=== PATIENT | female | born 1960 | race Caucasian/White ===

== ENCOUNTER 2018-08-03 15:22 | Emergency (ER) | payer OTHER ==
[2018-08-03] MEDS ORDERED: ALBUTEROL 2.5 MG/3 ML NEB SOL ONE (16:14)
[2018-08-03] MEDS ORDERED: IPRATROPIUM BROM 0.5MG/2.5ML ONE (16:14)
[2018-08-03] MEDS ORDERED: predniSONE 20 MG TAB ONE (16:14)
--- NOTE | 2018-08-03 17:25 | RAD REPORT ---
EXAM DESCRIPTION: RAD - Chest Pa And Lat (2 Views) - 08/03/2018 5:12 pm CLINICAL HISTORY: Cough;SOB Chest pain. COMPARISON: CHEST SINGLE VIEW dated 03/16/2015 TECHNIQUE: PA and lateral views of the chest were obtained. FINDINGS: The lungs are hyperexpanded compatible with COPD. The heart is upper limit of normal in si ze. No fracture or aggressive bony process. IMPRESSION: COPD without acute process identified.
--- NOTE | 2018-08-03 17:28 | ER ---
Nurse's Notes [facility] Name: Yesenia Salgado Age: 58 yrs Sex: Female : 1960 Arrival Date: 08/03/2018 Time: 15:25 Bed 5 Private MD: Diagnosis: Chronic obstructive pulmonary disease, unspecified Presentation: 08/03 15:40 Presenting complaint: Patient states: the other day, i had a very bad sinus infection, hj and now i have this chest congestion; denies fever and chills;. Transition of care: patient was not received from another setting of care. Onset of symptoms was August 03, 2018. Risk Assessment: Do you want to hurt yourself or someone else? Patient reports no desire to harm self or others. Initial Sepsis Screen: Does the patient meet any 2 criteria? No. Patient's initial sepsis screen is negative. Does the patient have a suspected source of infection? No. Patient's initial sepsis screen is negative. Care prior to arrival: None. 15:40 Method Of Arrival: Ambulatory 15:40 Acuity: BEAN 3 hj Triage Assessment: 15:41 General: Appears in no apparent distress. uncomfortable, Behavior is calm, cooperative, hj appropriate for age. Respiratory: Reports shortness of breath Onset: The symptoms/episode began/occurred yesterday, the patient has mild shortness of breath. 15:44 Pain: Denies pain. hj Historical: - Allergies: 15:42 No Known Allergies; hj - Home Meds: 15:42 Lipitor Oral [Active]; Zoloft Oral [Active]; hj - PMHx: 15:42 Hyperlipidemia; Depression; hj - PSHx: 15:42 Hysterectomy; Back Sx; R hand skin graft; hj - Immunization history:: Adult Immunizations up to date. - Social history:: Smoking status: Patient uses tobacco products, Patient/guardian denies using alcohol. - Ebola Screening: : Patient negative for fever greater than or equal to 101.5 degrees Fahrenheit, and additional compatible Ebola Virus Disease symptoms Patient denies exposure to infectious person Patient denies travel to an Ebola-affected area in the 21 days before illness onset. Screenin:41 Abuse screen: Denies threats or abuse. Denies injuries from another. Nutritional hj screening: No deficits noted. Tuberculosis screening: No symptoms or risk factors identified. Fall Risk None identified. Assessment: 15:41 Cardiovascular: Rhythm is. Respiratory: Airway is patent Respiratory effort is even, hj unlabored, Respiratory pattern is regular, symmetrical, 17:55 Reassessment: PT D/C HOME AMBULATORY WITH FAMILY, DX WITH COPD. bp Vital Signs: 15:43 BP 127 / 88; Pulse 81; Resp 18; Temp 98.9(O); Pulse Ox 98% on R/A; Weight 61.23 kg; hj Height 5 ft. 3 in. (160.02 cm); 17:30 BP 129 / 89; Pulse 83; Resp 14; Pulse Ox 97% ; bp 15:43 Body Mass Index 23.91 (61.23 kg, 160.02 cm) hj ED Course: 15:25 Patient arrived in ED. rg4 15:41 Triage completed. hj 15:42 Arm band placed on right wrist. hj 15:43 Patient has correct armband on for positive identification. Placed in gown. Bed in low hj position. Call light in reach. Side rails up X 1. 15:47 Herbert Sanders NP is PHCP. pm1 15:47 Javier Pittman MD is Attending Physician. pm1 15:54 Cristóbal Preston, RICARDO is Primary Nurse. bp 16:19 Radiology exam delayed due to patient receiving breathing treatment at this time. sw 17:05 Patient moved to radiology via wheelchair. mh1 17:09 X-ray completed. Patient tolerated procedure well. Patient moved back from radiology. mh1 17:10 Chest Pa And Lat (2 Views) XRAY In Process Unspecified. EDMS 17:55 No provider procedures requiring assistance completed. Patient did not have IV access bp during this emergency room visit. Administered Medications: 16:10 Drug: Albuterol - atroVENT (3:1) (2.5 mg - 0.5 mg) 3 ml Route: Nebulizer; bp 17:34 Follow up: Response: No adverse reaction; Marked relief of symptoms bp 16:10 Drug: predniSONE 60 mg Route: PO; bp 17:34 Follow up: Response: No adverse reaction; Marked relief of symptoms bp 17:40 Drug: Rocephin (cefTRIAXone) 1 grams Route: IM; Site: right gluteus; bp 17:50 Follow up: Response: No adverse reaction bp Outcome: 17:27 Discharge ordered by . pm1 17:56 Discharged to home ambulatory, with family. bp 17:56 Condition: stable 17:56 Discharge instructions given to patient, Instructed on discharge instructions, follow up and referral plans. medication usage, benefits of quitting smoking, Demonstrated understanding of instructions, follow-up care, medications, Prescriptions given X 4. 17:57 Patient left the ED. bp Signatures: Dispatcher [employer] EDMS PacoSunshine mh1 Cherrie Sibley Henry, RN RN Herbert Sanders NP SENIOR HARDWARE DESIGN ENGINEER pm1 Mildred Zambrano rg4 Cristóbal Preston RN RN bp Corrections: (The following items were deleted from the chart) 15:45 15:43 Pulse 81bpm; Resp 18bpm; Pulse Ox 98% RA; Temp 98.9F Oral; 61.23 kg; Height 5 ft. hj 3 in.; BMI: 23.9; hj
--- NOTE | 2018-08-03 17:28 | EDPHYS ---
Physician Documentation [facility] Name: Yesenia Salgado Age: 58 yrs Sex: Female : 1960 Arrival Date: 08/03/2018 Time: 15:25 Bed 5 Private MD: ED Physician Javier Pittman HPI: 08/03 16:00 This 58 yrs old Female presents to ER via Ambulatory with complaints of pm1 Breathing Difficulty, Congestion. 16:00 The patient or guardian reports cough, difficulty breathing, sinus congestion. Onset: pm1 The symptoms/episode began/occurred yesterday. Modifying factors: The symptoms are alleviated by breathing treatment at PCP office. Patient does not have an inhaler. Associated signs and symptoms: Pertinent positives: earache, Pertinent negatives: chest pain, diarrhea, fever, nausea, rhinorrhea, vomiting. Severity of symptoms: in the emergency department the symptoms have improved. The patient has been recently seen by a physician: the patient's primary care provider, earlier today, with similar presenting complaints, instructed to report to the ER for evaluation. Patient with onset of sinus congestion and pain yesterday. Today patient reports post nasal drainage, cough and difficulty breathing. Patient with 40+ years of smoking and currently 1 pack per day. Went to PCP office, given breathing treatment and instructed to report to the ER for evaluation. Breathing treatment, albuterol x 1 improved her symptoms. Historical: - Allergies: 15:42 No Known Allergies; hj - Home Meds: 15:42 Lipitor Oral [Active]; Zoloft Oral [Active]; hj - PMHx: 15:42 Hyperlipidemia; Depression; hj - PSHx: 15:42 Hysterectomy; Back Sx; R hand skin graft; hj - Immunization history:: Adult Immunizations up to date. - Social history:: Smoking status: Patient uses tobacco products, Patient/guardian denies using alcohol. - Ebola Screening: : Patient negative for fever greater than or equal to 101.5 degrees Fahrenheit, and additional compatible Ebola Virus Disease symptoms Patient denies exposure to infectious person Patient denies travel to an Ebola-affected area in the 21 days before illness onset. ROS: 16:00 Constitutional: Negative for fever, chills, and weight loss, Eyes: Negative for injury, pm1 pain, redness, and discharge. 16:00 Neck: Negative for injury, pain, and swelling, Cardiovascular: Negative for chest pain, palpitations, and edema. 16:00 Abdomen/GI: Negative for abdominal pain, nausea, vomiting, diarrhea, and constipation, Back: Negative for injury and pain, : Negative for injury, bleeding, discharge, and swelling, MS/Extremity: Negative for injury and deformity, Skin: Negative for injury, rash, and discoloration, Neuro: Negative for headache, weakness, numbness, tingling, and seizure. 16:00 ENT: Positive for ear pain, sinus congestion, sinus pain. 16:00 Respiratory: Positive for cough, with no reported sputum, shortness of breath. Exam: 16:00 Constitutional: This is a well developed, well nourished patient who is awake, alert, pm1 and in no acute distress. 16:00 Eyes: Pupils equal round and reactive to light, extra-ocular motions intact. Lids and lashes normal. Conjunctiva and sclera are non-icteric and not injected. Cornea within normal limits. Periorbital areas with no swelling, redness, or edema. ENT: Nares patent. No nasal discharge, no septal abnormalities noted. Tympanic membranes are normal and external auditory canals are clear. Oropharynx with no redness, swelling, or masses, exudates, or evidence of obstruction, uvula midline. Mucous membranes moist. Neck: Trachea midline, no thyromegaly or masses palpated, and no cervical lymphadenopathy. Supple, full range of motion without nuchal rigidity, or vertebral point tenderness. No Meningismus. Chest/axilla: Normal chest wall appearance and motion. Nontender with no deformity. No lesions are appreciated. Cardiovascular: Regular rate and rhythm with a normal S1 and S2. No gallops, murmurs, or rubs. Normal PMI, no JVD. No pulse deficits. 16:00 Abdomen/GI: Soft, non-tender, with normal bowel sounds. No distension or tympany. No guarding or rebound. No evidence of tenderness throughout. Back: No spinal tenderness. No costovertebral tenderness. Full range of motion. Skin: Warm, dry with normal turgor. Normal color with no rashes, no lesions, and no evidence of cellulitis. MS/ Extremity: Pulses equal, no cyanosis. Neurovascular intact. Full, normal range of motion. 16:00 Head/face: Sinus tenderness, that is mild, is located over the right maxillary sinus and left maxillary sinus. 16:00 Respiratory: the patient does not display signs of respiratory distress, Respirations: normal, Breath sounds: wheezin:00 Neuro: Orientation: is normal, Motor: is normal, moves all fours, Gait: is steady, at a normal pace, without difficulty. Vital Signs: 15:43 BP 127 / 88; Pulse 81; Resp 18; Temp 98.9(O); Pulse Ox 98% on R/A; Weight 61.23 kg; hj Height 5 ft. 3 in. (160.02 cm); 17:30 BP 129 / 89; Pulse 83; Resp 14; Pulse Ox 97% ; bp 15:43 Body Mass Index 23.91 (61.23 kg, 160.02 cm) hj MDM: 15:48 Patient medically screened. pm1 17:26 Data reviewed: vital signs. Data interpreted: Pulse oximetry: on room air is 98 %. pm1 Interpretation: normal. 17:26 Counseling: I had a detailed discussion with the patient and/or guardian regarding: the pm1 historical points, exam findings, and any diagnostic results supporting the discharge/admit diagnosis, lab results, radiology results, the need for outpatient follow up, to return to the emergency department if symptoms worsen or persist or if there are any questions or concerns that arise at home. 03 15:55 Order name: Flu; Complete Time: 16:56 pm1 08/03 15:55 Order name: Strep; Complete Time: 16:56 pm1 08/03 15:55 Order name: Chest Pa And Lat (2 Views) XRAY; Complete Time: 17:26 pm1 08/03 16:54 Order name: Throat Culture EDMS Administered Medications: 16:10 Drug: Albuterol - atroVENT (3:1) (2.5 mg - 0.5 mg) 3 ml Route: Nebulizer; bp 17:34 Follow up: Response: No adverse reaction; Marked relief of symptoms bp 16:10 Drug: predniSONE 60 mg Route: PO; bp 17:34 Follow up: Response: No adverse reaction; Marked relief of symptoms bp 17:40 Drug: Rocephin (cefTRIAXone) 1 grams Route: IM; Site: right gluteus; bp 17:50 Follow up: Response: No adverse reaction bp Disposition: 08/03/18 17:27 Discharged to Home. Impression: Chronic obstructive pulmonary disease, unspecified. - Condition is Stable. - Discharge Instructions: Chronic Obstructive Pulmonary Disease. - Prescriptions for Prednisone 20 mg Oral Tablet - take 3 tablet by ORAL route once daily for 5 days; 15 tablet. Zithromax Z- Usman 250 mg Oral Tablet - take 1 tablet by ORAL route as directed for 5 days Day 1 - take two (2) tablets one time. Day 2, 3, 4 , 5 take one (1) tablet once daily.; 6 tablet. Albuterol Sulfate 90 mcg/actuation - inhale 1-2 puff by INHALATION route every 4-6 hours; 1 Inhaler. Guaifenesin AC 10- 100 mg/5 mL Oral Liquid - take 10 milliliter by ORAL route every 4 hours As needed; 240 milliliter. - Medication Reconciliation Form, Thank You Letter, Prescription Opioid Use form. - Follow up: Emergency Department; When: As needed; Reason: Worsening of condition. Follow up: Private Physician; When: 2 - 3 days; Reason: Recheck today's complaints, Continuance of care, Re-evaluation by your physician. - Problem is new. - Symptoms have improved. Signatures: Dispatcher [employer] EDMS Raoul Wilburn RN RN hj Herbert Sanders NP PLATE SENSITIZER pm1 Cristóbal Preston RN RN bp Corrections: (The following items were deleted from the chart) 17:57 17:27 08/03/2018 17:27 Discharged to Home. Impression: Chronic obstructive pulmonary bp disease, unspecified. Condition is Stable. Forms are Medication Reconciliation Form, Thank You Letter, Antibiotic Education, Prescription Opioid Use. Follow up: Emergency Department; When: As needed; Reason: Worsening of condition. Follow up: Private Physician; When: 2 - 3 days; Reason: Recheck today's complaints, Continuance of care, Re-evaluation by your physician. Problem is new. Symptoms have improved. pm1
[2018-08-03] MEDS ORDERED: CEFTRIAXONE 1000 MG/VIAL ONE (17:48)
[2018-08-03] MEDS ORDERED: LIDOCAINE 2% MPF 5 ML VIAL ONE (17:48)
[2018-08-03 18:11] VITALS: TEMP 98.9
[2018-08-03 18:12] VITALS: BP 129/89; O2SAT 97
== END 2018-08-03 17:57 | disposition home or self-care (01) ==
LOC: ER 15:22
DX: J44.9 Chronic obstructive pulmonary disease, unspecified (principal); E78.5 Hyperlipidemia, unspecified; F32.9 Major depressive disorder, single episode, unspecified; F17.210 Nicotine dependence, cigarettes, uncomplicated
CPT/HCPCS: 71046; 87070; 87081; 87804; 94640; 96372; 99284; J7512

== ENCOUNTER 2018-08-20 11:58 | Emergency (ER) | payer OTHER ==
[2018-08-20] MEDS ORDERED: LEVALBUTEROL 1.25 MG/3 ML NEB ONE (13:02)
[2018-08-20] MEDS ORDERED: METHYLPREDNISOLONE 125 MG INJ ONE (13:02)
[2018-08-20] MEDS ORDERED: CEFTRIAXONE/SWI 1gm 1 GM/10 ML SYR ONE (13:02)
[2018-08-20] MEDS ORDERED: IPRATROPIUM BROM 0.5MG/2.5ML ONE (13:02)
[2018-08-20] MEDS ORDERED: AZITHROMYCIN 250 MG TAB ONE (13:02)
[2018-08-20 13:14] LABS: Absolute Monocytes 0.5 K/uL (0.1-1.3); Absolute Neutrophil 0.9 K/uL (1.8-8.0); Basophils % 0.7 % (0-1.3); Eosinophils % 1.5 % (0-4.4); Lymphocytes % 41.1 % (15.3-44.8); Monocytes % 19.7 % (3.3-12.3)
--- NOTE | 2018-08-20 13:22 | RAD REPORT ---
EXAM DESCRIPTION: Erik Single View08/20/2018 1:16 pm CLINICAL HISTORY: Cough COMPARISON: August 03, 2018 FINDINGS: The lungs appear clear of acute infiltrate. The heart is normal size IMPRESSION: No acute abnormalities displayed
[2018-08-20 13:31] LABS: Protime INR 1.18
[2018-08-20 13:38] LABS: ALT/SGPT 33 U/L (12-78); AST/SGOT 26 U/L (15-37); Albumin 3.7 g/dL (3.4-5.0); Alkaline Phosphatase 125 U/L (45-117); BUN Blood Urea Nitrogen 9 mg/dL (7-18); Bicarbonate 27 mmol/L (21-32); Bilirubin Direct < 0.1 mg/dL (0-0.2); Bilirubin Total 0.2 mg/dL (0.2-1.0); CKMB Creatine Kinase MB 1.2 ng/mL (0.3-3.6); Creatine Phosphokinase 44 U/L (26-192); Glucose Level 110 mg/dL (74-106); Lipase 81 U/L (73-393); Magnesium 2.3 mg/dL (1.8-2.4); NT PRO-BNP 29 pg/mL (<125); Potassium 3.3 mmol/L (3.5-5.1); Protein, Total 7.9 g/dL (6.4-8.2); Sodium Level 138 mmol/L (136-145); Troponin (Emerg Dept Use Only) < 0.02 ng/mL (0.0-0.045)
[2018-08-20 13:40] LABS: Blood Morphology Comment NOT SEEN (NOT SEEN); Platelet Estimate ADEQ
--- NOTE | 2018-08-20 14:37 | EDPHYS ---
Physician Documentation [facility] Name: Yesenia Salgado Age: 58 yrs Sex: Female : 1960 Arrival Date: 08/20/2018 Time: 11:59 Bed 25 Private MD: ED Physician Rufus Nunn HPI: 08/20 12:46 This 58 yrs old Female presents to ER via Ambulatory with complaints of ma2 Shortness Of Breath. 12:46 The patient has shortness of breath with light activity. Onset: The symptoms/episode ma2 began/occurred gradually, 3 day(s) ago. Associated signs and symptoms: Pertinent negatives: productive cough, fever, loss of consciousness, nausea, visual changes. Severity of symptoms: At their worst the symptoms were moderate in the emergency department the symptoms are unchanged. The patient has experienced similar episodes in the past. Historical: - Allergies: 12:12 No Known Allergies; hb - Home Meds: 12:12 Lipitor Oral [Active]; Zoloft Oral [Active]; hb - PMHx: 12:12 Depression; Hyperlipidemia; hb - PSHx: 12:12 Hysterectomy; Back Sx; R hand skin graft; hb - Immunization history:: Adult Immunizations up to date. - Social history:: Smoking status: Patient uses tobacco products, smokes one-half pack cigarettes per day, Patient uses Patient/guardian denies using alcohol, street drugs, The patient lives with family. - Ebola Screening: : No symptoms or risks identified at this time. - Family history:: not pertinent. ROS: 12:46 Constitutional: Negative for fever, chills, and weight loss. ma2 12:46 Respiratory: Positive for shortness of breath, Negative for dyspnea on exertion, orthopnea, pleurisy. 12:46 All other systems are negative. Exam: 12:46 Constitutional: This is a well developed, well nourished patient who is awake, alert, ma2 and in no acute distress. 12:46 ENT: Nares patent. No nasal discharge, no septal abnormalities noted. Tympanic membranes are normal and external auditory canals are clear. Oropharynx with no redness, swelling, or masses, exudates, or evidence of obstruction, uvula midline. Mucous membranes moist. Chest/axilla: Normal chest wall appearance and motion. Nontender with no deformity. No lesions are appreciated. Cardiovascular: Regular rate and rhythm with a normal S1 and S2. No gallops, murmurs, or rubs. Normal PMI, no JVD. No pulse deficits. Abdomen/GI: Soft, non-tender, with normal bowel sounds. No distension or tympany. No guarding or rebound. No evidence of tenderness throughout. MS/ Extremity: Pulses equal, no cyanosis. Neurovascular intact. Full, normal range of motion. Neuro: Awake and alert, GCS 15, oriented to person, place, time, and situation. Cranial nerves II-XII grossly intact. Motor strength 5/5 in all extremities. Sensory grossly intact. Cerebellar exam normal. Normal gait. 12:46 Respiratory: the patient does not display signs of respiratory distress, Respirations: no acute changes, Breath sounds: rales, wheezing: Respiratory rate: 2 Vital Signs: 12:12 BP 131 / 93; Pulse 90; Resp 20; Temp 98.9; Pulse Ox 97% on R/A; Pain 0/10; hb 12:41 BP 130 / 93; Pulse 94; Resp 15; Pulse Ox 94% on R/A; aj1 13:45 BP 106 / 78; Pulse 79; Resp 19; Pulse Ox 94% on R/A; aj1 14:55 BP 116 / 78 LA; Pulse 80 RA; Resp 17; Pulse Ox 98% on R/A; aj1 MDM: 12:31 Patient medically screened. [facility] 12:46 Differential diagnosis: Anemia asthma, Bronchitis reactive airway disease. Antibiotic wa2 administration: The patient is discharged and will get outpatient antibiotics. 14:35 Data reviewed: vital signs, nurses notes. Counseling: I had a detailed discussion with ma2 the patient and/or guardian regarding: the historical points, exam findings, and any diagnostic results supporting the discharge/admit diagnosis, the presence of at least one elevated blood pressure reading (>120/80) during this emergency department visit, the need for outpatient follow up. Response to treatment: the patient's symptoms have resolved after treatment. 08/20 12:41 Order name: Blood Culture Adult (2) [facility] 08/20 12:41 Order name: BMP; Complete Time: 14:34 [facility] 08/20 12:41 Order name: CBC with Diff; Complete Time: 14:34 [facility] 08/20 12:41 Order name: Ckmb; Complete Time: 14:34 08/20 12:41 Order name: CPK; Complete Time: 14:34 08/20 12:41 Order name: Hepatic Function; Complete Time: 14:34 08/20 12:41 Order name: Lipase; Complete Time: 14:34 08/20 12:41 Order name: Magnesium; Complete Time: 14:34 08/20 12:41 Order name: NT PRO-BNP; Complete Time: 14:34 08/20 12:41 Order name: PT-INR; Complete Time: 14:34 08/20 12:41 Order name: Ptt, Activated; Complete Time: 14:34 2 08/20 12:41 Order name: Troponin (emerg Dept Use Only); Complete Time: 14:34 08/20 12:41 Order name: Influenza Screen (a \T\ B); Complete Time: 14:34 08/20 13:24 Order name: Manual Differential; Complete Time: 14:34 EDMS 08/20 12:41 Order name: XRAY CXR (1 view); Complete Time: 14:34 08/20 12:41 Order name: EKG; Complete Time: 12:42 08/20 12:41 Order name: Cardiac monitoring; Complete Time: 12:47 08/20 12:41 Order name: EKG - Nurse/Tech; Complete Time: 13:00 08/20 12:41 Order name: IV Saline Lock; Complete Time: 13:01 08/20 12:41 Order name: Labs collected and sent; Complete Time: 13:01 08/20 12:41 Order name: O2 Per Protocol; Complete Time: 12:47 08/20 12:41 Order name: O2 Sat Monitoring; Complete Time: 12:47 ma Administered Medications: 13:02 Drug: SOLU-Medrol 125 mg Route: IVP; Site: left antecubital; 13:02 Drug: AtroVENT Aerosol 0.5 mg {Note: Give one dose per Dr. Nunn.} Route: Inhalation; aj 13:02 Drug: Rocephin 1 grams Route: IV; Rate: calculated rate; Site: left antecubital; aj 13:02 Drug: AZITHromycin 500 mg Route: PO; aj1 13:03 Drug: Xopenex 1.25 mg Route: Inhalation; aj1 Disposition: 08/20/18 14:36 Discharged to Home. Impression: Acute bronchitis. - Condition is Stable. - Discharge Instructions: Acute Bronchitis, Adult. - Prescriptions for Zithromax Z- Usman 250 mg Oral Tablet - take 1 tablet by ORAL route as directed for 5 days Day 1 - take two (2) tablets one time. Day 2, 3, 4 , 5 take one (1) tablet once daily.; 6 tablet. Medrol (Usman) 4 mg Oral Tablets, Dose Pack - take 1 tablet by ORAL route as directed - follow package instructions; 1 packet. - Medication Reconciliation Form, Thank You Letter, Antibiotic Education, Prescription Opioid Use form. - Follow up: Private Physician; When: Tomorrow; Reason: Continuance of care. Signatures: Dispatcher [employer] Maria Del Rosario Alfaro RN RN aj1 Emilia Styles RN RN Rufus Nunn MD MD ma2 Corrections: (The following items were deleted from the chart) 14:57 14:36 08/20/2018 14:36 Discharged to Home. Impression: Acute bronchitis. Condition is aj1 Stable. Forms are Medication Reconciliation Form, Thank You Letter, Antibiotic Education, Prescription Opioid Use. Follow up: Private Physician; When: Tomorrow; Reason: Continuance of care. ma2
--- NOTE | 2018-08-20 14:37 | ER ---
Nurse's Notes [facility] Name: Yesenia Salgado Age: 58 yrs Sex: Female : 1960 Arrival Date: 08/20/2018 Time: 11:59 Bed 25 Private MD: Diagnosis: Acute bronchitis Presentation: 08/20 12:10 Presenting complaint: Cough, congestion,and SOB x 2 weeks, body aches x 3 days. Feels hb like SOB is getting worse. TMAX 102. Transition of care: patient was not received from another setting of care. Onset of symptoms was August 20, 2018. Risk Assessment: Do you want to hurt yourself or someone else? Patient reports no desire to harm self or others. Care prior to arrival: None. 12:10 Method Of Arrival: Ambulatory hb 12:10 Acuity: BEAN 3 hb 14:56 Initial Sepsis Screen: Does the patient meet any 2 criteria? No. Patient's initial aj1 sepsis screen is negative. Does the patient have a suspected source of infection? No. Patient's initial sepsis screen is negative. Triage Assessment: 14:56 General: Appears in no apparent distress. uncomfortable. Respiratory: Onset: The aj1 symptoms/episode began/occurred gradually, the patient has mild shortness of breath. Respiratory: Breath sounds with wheezes bilaterally. Respiratory: Airway is patent. Respiratory:. Historical: - Allergies: 12:12 No Known Allergies; hb - Home Meds: 12:12 Lipitor Oral [Active]; Zoloft Oral [Active]; hb - PMHx: 12:12 Depression; Hyperlipidemia; hb - PSHx: 12:12 Hysterectomy; Back Sx; R hand skin graft; hb - Immunization history:: Adult Immunizations up to date. - Social history:: Smoking status: Patient uses tobacco products, smokes one-half pack cigarettes per day, Patient uses Patient/guardian denies using alcohol, street drugs, The patient lives with family. - Ebola Screening: : No symptoms or risks identified at this time. - Family history:: not pertinent. Screenin:41 Abuse screen: Denies threats or abuse. Denies injuries from another. Nutritional aj1 screening: No deficits noted. Tuberculosis screening: No symptoms or risk factors identified. 14:57 Fall Risk None identified. aj1 Assessment: 12:41 General: Appears in no apparent distress. comfortable, Behavior is calm, cooperative, aj1 appropriate for age. Pain: Denies pain. Neuro: Level of Consciousness is awake, alert, obeys commands, Oriented to person, place, time, situation. Cardiovascular: Denies chest pain, Heart tones S1 S2 present Patient's skin is warm and dry. Rhythm is sinus rhythm. Respiratory: Reports shortness of breath Airway is patent Respiratory effort is even, unlabored, Respiratory pattern is regular, tachypnea Breath sounds with wheezes bilaterally. GI: No signs and/or symptoms were reported involving the gastrointestinal system. : No signs and/or symptoms were reported regarding the genitourinary system. EENT: No signs and/or symptoms were reported regarding the EENT system. Derm: No signs and/or symptoms reported regarding the dermatologic system. Skin is pink, warm \T\ dry. normal. Musculoskeletal: No signs and/or symptoms reported regarding the musculoskeletal system. Circulation, motion, and sensation intact. 13:45 Reassessment: Patient appears in no apparent distress at this time. Patient and/or aj1 family updated on plan of care and expected duration. Pain level reassessed. Patient is alert, oriented x 3, equal unlabored respirations, skin warm/dry/pink. Patient states that the breathing treatment has helped with her shortness of breath. Vital Signs: 12:12 BP 131 / 93; Pulse 90; Resp 20; Temp 98.9; Pulse Ox 97% on R/A; Pain 0/10; hb 12:41 BP 130 / 93; Pulse 94; Resp 15; Pulse Ox 94% on R/A; aj1 13:45 BP 106 / 78; Pulse 79; Resp 19; Pulse Ox 94% on R/A; aj1 14:55 BP 116 / 78 LA; Pulse 80 RA; Resp 17; Pulse Ox 98% on R/A; aj1 ED Course: 11:59 Patient arrived in ED. as 12:12 Triage completed. hb 12:13 Arm band placed on right wrist. hb 12:31 Rufus Nunn MD is Attending Physician. ma2 12:40 Maria Del Rosario Leblanc, RICARDO is Primary Nurse. aj1 12:40 First set of blood cultures drawn by me. jb1 12:41 Patient has correct armband on for positive identification. aj1 12:41 No provider procedures requiring assistance completed. aj1 12:53 EKG done, by site damage prevention technician. reviewed by Rufus Nunn MD. sm3 12:55 Second set of blood cultures drawn by me. jb1 13:00 Initial lab(s) drawn, by me, sent to lab. Inserted saline lock: 22 gauge in left jb1 antecubital area, using aseptic technique. Blood collected. 13:00 Flu and/or RSV swab sent to lab. jb1 13:00 Influenza Screen (a \T\ B) Sent. jb1 13:16 XRAY CXR (1 view) In Process Unspecified. EDMS 14:56 IV discontinued, bleeding controlled, No redness/swelling at site. Pressure dressing aj1 applied. Administered Medications: 13:02 Drug: SOLU-Medrol 125 mg Route: IVP; Site: left antecubital; aj1 13:02 Drug: AtroVENT Aerosol 0.5 mg {Note: Give one dose per Dr. Nunn.} Route: Inhalation; aj1 13:02 Drug: Rocephin 1 grams Route: IV; Rate: calculated rate; Site: left antecubital; aj1 13:02 Drug: AZITHromycin 500 mg Route: PO; aj1 13:03 Drug: Xopenex 1.25 mg Route: Inhalation; aj1 Outcome: 14:36 Discharge ordered by . marv 14:56 Discharged to home ambulatory. aj1 14:56 Condition: good 14:56 Discharge instructions given to patient, Instructed on discharge instructions, follow up and referral plans. medication usage, Demonstrated understanding of instructions, follow-up care, medications, Prescriptions given X 2. 14:57 Patient left the ED. aj1 Signatures: Dispatcher [employer] EDMS Jack Lamb jb1 Maria Del Rosario Leblanc RN RN aj1 Yumiko Gonsales Heather, RN RN Rufus Nunn MD MD or2 Corinne Robbins 3 Corrections: (The following items were deleted from the chart) 12:43 12:41 BP 130 / 9; Pulse 94bpm; Resp 15bpm; Pulse Ox 94% RA; aj1 aj1
[2018-08-20] MEDS ORDERED: ACETAMINOPHEN 500 MG TAB ONE (15:04)
--- NOTE | 2018-08-20 15:08 | EKG ---
Test Date: 2018-08-20 Test Time: 12:49:41 Cargo Broker: BORIS MEASUREMENT RESULTS: Intervals: Rate: 83 PA: 144 QRSD: 66 QT: 392 QTc: 460 [place]: P: 76 PA: 144 QRS: 77 T: 86 INTERPRETIVE STATEMENTS: Sinus rhythm Nonspecific ST and T wave abnormality Prolonged QT Abnormal ECG Compared to ECG 03/16/2015 12:33:55 ST (T wave) deviation now present Prolonged QT interval now present Electronically Signed On 08-20-18 15:07:37 CDT by Lalito Lee
[2018-08-20 15:09] VITALS: TEMP 98.9
[2018-08-20 15:17] VITALS: BP 116/78; O2SAT 98
== END 2018-08-20 14:57 | disposition home or self-care (01) ==
LOC: ER 11:58
DX: J20.9 Acute bronchitis, unspecified (principal); F17.210 Nicotine dependence, cigarettes, uncomplicated; E78.5 Hyperlipidemia, unspecified; F32.9 Major depressive disorder, single episode, unspecified
CPT/HCPCS: 93005; 87040 ×2; 85025; 80048; 36415; 83735; 82550; 85610; 80076; 85730; 84484; 82553; 83690; 83880; 87804 ×2; 71045; 96375; 96374; 99285; J0696; J2930

== ENCOUNTER 2019-02-01 15:34 | Emergency (ER) | payer OTHER ==
--- NOTE | 2019-02-01 16:32 | EDPHYS ---
Physician Documentation [facility] Name: Yesenia Salgado Age: 58 yrs Sex: Female : 1960 Arrival Date: 02/01/2019 Time: 15:38 Bed 12 Private MD: ED Physician Javier Pittman HPI: 02/01 15:47 This 58 yrs old Female presents to ER via Wheelchair with complaints of Ankle jr8 Injury. 15:47 The patient presents with decreased range of motion, pain, that is acute, swelling, jr8 tenderness. The complaints affect the right ankle. Onset: The symptoms/episode began/occurred acutely, last night. Context: The problem was sustained outdoors, resulted from the patient tripping, The mechanism of injury involved inversion of the affected ankle. The patient can partially bear weight on the affected extremity. the patient is able to ambulate, with mild difficulty. Associated signs and symptoms: The patient has no apparent associated signs or symptoms. Modifying factors: The symptoms are alleviated by nothing, the symptoms are aggravated by nothing. Severity of symptoms: At their worst the symptoms were moderate, in the emergency department the symptoms are unchanged. The patient has not experienced similar symptoms in the past. The patient has not recently seen a physician. Patient stated that she stepped on a rock outside causing her to slip and invert her right ankle. Pain since then that is not resolving. Historical: - Allergies: 15:39 No Known Allergies; sv - PMHx: 15:39 Depression; Hyperlipidemia; sv - PSHx: 15:39 Hysterectomy; Back Sx; R hand skin graft; sv - Immunization history:: Adult Immunizations up to date. - Social history:: Smoking status: Patient uses tobacco products, smokes one pack cigarettes per day. - Ebola Screening: : No symptoms or risks identified at this time. ROS: 15:47 Eyes: Negative for injury, pain, redness, and discharge, ENT: Negative for injury, jr8 pain, and discharge, Neck: Negative for injury, pain, and swelling, Cardiovascular: Negative for chest pain, palpitations, and edema, Respiratory: Negative for shortness of breath, cough, wheezing, and pleuritic chest pain, Abdomen/GI: Negative for abdominal pain, nausea, vomiting, diarrhea, and constipation, Back: Negative for injury and pain, Skin: Negative for injury, rash, and discoloration, Neuro: Negative for headache, weakness, numbness, tingling, and seizure. 15:47 MS/extremity: Positive for decreased range of motion, pain, swelling, tenderness, of the right lateral ankle. Exam: 15:47 Constitutional: This is a well developed, well nourished patient who is awake, alert, jr8 and in no acute distress. Cardiovascular: Regular rate and rhythm with a normal S1 and S2. No gallops, murmurs, or rubs. Normal PMI, no JVD. No pulse deficits. Respiratory: Lungs have equal breath sounds bilaterally, clear to auscultation and percussion. No rales, rhonchi or wheezes noted. No increased work of breathing, no retractions or nasal flaring. Skin: Warm, dry with normal turgor. Normal color with no rashes, no lesions, and no evidence of cellulitis. Neuro: Awake and alert, GCS 15, oriented to person, place, time, and situation. Cranial nerves II-XII grossly intact. Motor strength 5/5 in all extremities. Sensory grossly intact. Cerebellar exam normal. Normal gait. 15:47 Musculoskeletal/extremity: Extremities: grossly normal except: noted in the right ankle: Patient has swelling and tenderness noted to right malleolar region of right ankle. No bruising, abrasion, laceration, or other trauma noted. Pain with ROM both active and passive. Mild decrease in ROM secondary to pain with passive motion , Pulses: noted to be 2+ in the right radial artery, right dorsalis pedis artery, left radial artery and left dorsalis pedis artery. Vital Signs: 15:39 BP 113 / 68; Pulse 84; Resp 16; Temp 98.5; Pulse Ox 95% ; Weight 61.23 kg; Height 5 ft. sv 3 in. (160.02 cm); Pain 8/10; 15:39 Body Mass Index 23.91 (61.23 kg, 160.02 cm) sv Procedures: 16:28 Splinting: Splint applied to right ankle using aspen wrap, applied by tech. Examined by lanny de, post splint application: neurovascular intact, 2+ distal pulses palpable, brisk capillary refill noted, Patient tolerated well. Crutch training provided to patient and/or family. Return demonstration given. MDM: 15:40 Patient medically screened. jr8 16:28 Data reviewed: vital signs, nurses notes, radiologic studies, plain films. Data jr8 interpreted: Pulse oximetry: on room air is 95 %. Interpretation: normal. Counseling: I had a detailed discussion with the patient and/or guardian regarding: the historical points, exam findings, and any diagnostic results supporting the discharge/admit diagnosis, radiology results, the need for outpatient follow up, a orthopedic surgeon, to return to the emergency department if symptoms worsen or persist or if there are any questions or concerns that arise at home. 02/01 15:47 Order name: XRAY Ankle RIGHT 3 view jr8 Administered Medications: No medications were administered Disposition: 02/01/19 16:29 Discharged to Home. Impression: Sprain of ankle. - Condition is Stable. - Discharge Instructions: Ankle Sprain. - Prescriptions for Ibuprofen 800 mg Oral Tablet - take 1 tablet by ORAL route every 12 hours As needed take with food; 20 tablet. - Medication Reconciliation Form, Thank You Letter, Antibiotic Education, Prescription Opioid Use form. - Follow up: Khoa Kaur MD; When: 5 - 6 days; Reason: Recheck today's complaints, Continuance of care, Re-evaluation by your physician. - Problem is new. - Symptoms have improved. Addendum: 02/03/2019 19:24 Co-signature as Attending Physician, Javier Pittman MD I agree with the assessment and k dr plan of care. Signatures: Dispatcher [employer] EDMS Maria Del Rosario Leblanc RN RN aj1 Kerline Moyer RN RN Javier Pittman MD MD [facility] Zack Desai PA PA jr8 Corrections: (The following items were deleted from the chart) 02/01 17:04 16:29 02/01/2019 16:29 Discharged to Home. Impression: Sprain of ankle. Condition is aj1 Stable. Forms are Medication Reconciliation Form, Thank You Letter, Antibiotic Education, Prescription Opioid Use. Follow up: Khoa Kaur; When: 5 - 6 days; Reason: Recheck today's complaints, Continuance of care, Re-evaluation by your physician. Problem is new. Symptoms have improved. jr8
--- NOTE | 2019-02-01 16:32 | ER ---
Nurse's Notes [facility] Name: Yesenia Salgado Age: 58 yrs Sex: Female : 1960 Arrival Date: 02/01/2019 Time: 15:38 Bed 12 [facility] MD: Diagnosis: Sprain of ankle Presentation: 02/01 15:38 Presenting complaint: Patient states: right ankle/foot injury yesterday after stepping sv wrong. Increased pain and swelling. Transition of care: patient was not received from another setting of care. Onset of symptoms was January 31, 2019. Risk Assessment: Do you want to hurt yourself or someone else? Patient reports no desire to harm self or others. Initial Sepsis Screen: Does the patient meet any 2 criteria? No. Patient's initial sepsis screen is negative. Does the patient have a suspected source of infection? No. Patient's initial sepsis screen is negative. Care prior to arrival: None. 15:38 Method Of Arrival: Wheelchair sv 15:38 Acuity: BEAN 4 sv Historical: - Allergies: 15:39 No Known Allergies; sv - PMHx: 15:39 Depression; Hyperlipidemia; sv - PSHx: 15:39 Hysterectomy; Back Sx; R hand skin graft; sv - Immunization history:: Adult Immunizations up to date. - Social history:: Smoking status: Patient uses tobacco products, smokes one pack cigarettes per day. - Ebola Screening: : No symptoms or risks identified at this time. Screenin:51 Abuse screen: Denies threats or abuse. Denies injuries from another. Nutritional aj1 screening: No deficits noted. Tuberculosis screening: No symptoms or risk factors identified. Fall Risk Fall in past 12 months (25 points). No secondary diagnosis (0 pts). IV access (20 points). Ambulatory Aid- None/Bed Rest/Nurse Assist (0 pts). Gait- Impaired (20 pts.). Mental Status- Oriented to own ability (0 pts). Total Balderas Fall Scale indicates High Risk Score (45 or more points). Fall prevention measures have been instituted. Assessment: 15:51 General: Appears in no apparent distress. uncomfortable, Behavior is calm, cooperative, aj1 appropriate for age. Pain: Complains of pain in right ankle Pain does not radiate. Pain currently is 8 out of 10 on a pain scale. Neuro: Level of Consciousness is awake, alert, obeys commands. Cardiovascular: Patient's skin is warm and dry. Respiratory: Airway is patent Respiratory effort is even, unlabored, Respiratory pattern is regular, symmetrical. GI: No signs and/or symptoms were reported involving the gastrointestinal system. : No signs and/or symptoms were reported regarding the genitourinary system. EENT: Derm: No signs and/or symptoms reported regarding the dermatologic system. Skin is pink, warm \T\ dry. normal. Musculoskeletal: Range of motion: limited in right ankle Swelling present in right ankle. 16:55 Reassessment: Patient appears in no apparent distress at this time. No changes from aj1 previously documented assessment. Patient and/or family updated on plan of care and expected duration. Pain level reassessed. Patient is alert, oriented x 3, equal unlabored respirations, skin warm/dry/pink. Vital Signs: 15:39 BP 113 / 68; Pulse 84; Resp 16; Temp 98.5; Pulse Ox 95% ; Weight 61.23 kg; Height 5 ft. sv 3 in. (160.02 cm); Pain 8/10; 15:39 Body Mass Index 23.91 (61.23 kg, 160.02 cm) sv ED Course: 15:38 Patient arrived in ED. sv 15:39 Triage completed. sv 15:40 Zack Desai PA is PHCP. jr8 15:40 Javier Pittman MD is Attending Physician. jr8 15:40 Arm band placed on. sv 15:42 Maria Del Rosario Leblanc, RN is Primary Nurse. aj1 15:54 Patient has correct armband on for positive identification. Call light in reach. aj1 15:54 No provider procedures requiring assistance completed. Patient did not have IV access aj1 during this emergency room visit. 16:26 XRAY Ankle RIGHT 3 view In Process Unspecified. EDMS 16:29 Khoa Kaur MD is Referral Physician. jr8 17:01 Jakob wrap to right ankle. aj1 Administered Medications: No medications were administered Outcome: 16:29 Discharge ordered by . jr8 17:03 Discharged to home ambulatory. aj1 17:03 Condition: good 17:03 Discharge instructions given to patient, Instructed on discharge instructions, follow up and referral plans. medication usage, Demonstrated understanding of instructions, follow-up care, medications, Prescriptions given X 1. 17:04 Patient left the ED. aj1 Signatures: Dispatcher [employer] Maria Del Rosario Alfaro RN RN aj1 Kerline Moyer RN RN Zack Gunter PA PA jr8
--- NOTE | 2019-02-01 16:49 | RAD REPORT ---
EXAM DESCRIPTION: RAD - Ankle Right 3 View - 02/01/2019 4:27 pm CLINICAL HISTORY: Right ankle pain status post injury FINDINGS: Oval bony density adjacent to lateral malleolus has a sclerotic border and probably is chr onic. Soft tissue swelling is noted. No acute fracture or dislocation seen
[2019-02-01 17:14] VITALS: BP 113/68; TEMP 98.5; O2SAT 95
== END 2019-02-01 17:04 | disposition home or self-care (01) ==
LOC: ER 15:34
DX: S93.401A Sprain of unspecified ligament of right ankle, initial encounter (principal); F17.210 Nicotine dependence, cigarettes, uncomplicated; W01.0XXA Fall on same level from slipping, tripping and stumbling without subsequent striking against object, initial encounter; Y93.9 Activity, unspecified; Y92.9 Unspecified place or not applicable
CPT/HCPCS: 99283

== ENCOUNTER 2019-04-17 20:27 | Emergency (ER) | payer OTHER ==
[2019-04-17] MEDS ORDERED: MORPHINE 4 MG/ML SYR ONE (22:21)
[2019-04-17] MEDS ORDERED: ONDANSETRON 4 MG (ODT) TAB ONE (22:21)
[2019-04-17 22:24] LABS: Urine Blood TRACE (NEG); Urine Glucose NEGATIVE (NEG); Urine Protein NEGATIVE (NEG); Urine Specific Gravity 1.015 (1.005-1.030)
[2019-04-17] MEDS ORDERED: DIAZEPAM 5 MG TABLET ONE (23:19)
--- NOTE | 2019-04-17 23:22 | ER ---
Nurse's Notes [facility] Name: Yesenia Salgado Age: 58 yrs Sex: Female : 1960 Arrival Date: 04/17/2019 Time: 20:41 Bed 26 Private MD: Diagnosis: Sprain of other parts of lumbar spine and pelvis Presentation: 04/17 20:53 Presenting complaint: Patient states: "I went to lift a pair of pants out of a basket aj1 and when I did my back popped and its been hurting ever since this was around lunch time today". Transition of care: patient was not received from another setting of care. Onset of symptoms was April 17, 2019. Risk Assessment: Do you want to hurt yourself or someone else? Patient reports no desire to harm self or others. Initial Sepsis Screen: Does the patient meet any 2 criteria? No. Patient's initial sepsis screen is negative. Does the patient have a suspected source of infection? No. Patient's initial sepsis screen is negative. Care prior to arrival: None. 20:53 Method Of Arrival: Ambulatory [facility] 20:53 Acuity: BEAN 4 aj1 Triage Assessment: 20:54 General: Appears in no apparent distress. uncomfortable, Behavior is calm, cooperative, aj1 appropriate for age. Pain: Complains of pain in back Pain currently is 9 out of 10 on a pain scale. Neuro: Level of Consciousness is awake, alert, obeys commands. Cardiovascular: Patient's skin is warm and dry. Respiratory: Airway is patent Respiratory effort is even, unlabored, Respiratory pattern is regular, symmetrical. Musculoskeletal: Circulation, motion, and sensation intact. Range of motion: intact in all extremities. Historical: - Allergies: 20:54 No Known Allergies; aj1 - Home Meds: 20:54 None [Active]; aj1 - PMHx: 20:54 Depression; Hyperlipidemia; Chronic pain; aj1 - Immunization history:: Flu vaccine is not up to date. - Social history:: Smoking status: Patient uses tobacco products, smokes one pack cigarettes per day. - Ebola Screening: : Patient denies travel to an Ebola-affected area in the 21 days before illness onset. Screenin:10 Abuse screen: Denies threats or abuse. Denies injuries from another. Nutritional wh screening: No deficits noted. Tuberculosis screening: No symptoms or risk factors identified. Fall Risk None identified. Assessment: 21:10 General: Appears in no apparent distress. uncomfortable, Behavior is calm, cooperative, wh appropriate for age. Pain: Complains of pain in lower back Pain does not radiate. Pain currently is 9 out of 10 on a pain scale. Quality of pain is described as aching, Pain began this afternoon. Neuro: Level of Consciousness is awake, alert, obeys commands, Oriented to person, place, time, situation, Appropriate for age. Cardiovascular: Heart tones S1 S2. Respiratory: Airway is patent Respiratory effort is even, unlabored, Respiratory pattern is regular, symmetrical, Breath sounds are clear bilaterally. GI: Abdomen is flat, non-distended. : No signs and/or symptoms were reported regarding the genitourinary system. EENT: No signs and/or symptoms were reported regarding the EENT system. Derm: Skin is intact, is healthy with good turgor, Skin is pink, warm \\T\\ dry. normal. Musculoskeletal: Circulation, motion, and sensation intact. 22:15 Reassessment: Patient appears in no apparent distress at this time. No changes from previously documented assessment. Patient and/or family updated on plan of care and expected duration. Pain level reassessed. Patient is alert, oriented x 3, equal unlabored respirations, skin warm/dry/pink. 23:52 Reassessment: Patient appears in no apparent distress at this time. No changes from previously documented assessment. Patient and/or family updated on plan of care and expected duration. Pain level reassessed. Patient is alert, oriented x 3, equal unlabored respirations, skin warm/dry/pink. Patient states feeling better. Patient states symptoms have improved. Vital Signs: 20:54 BP 149 / 93; Pulse 77; Resp 18; Temp 98.3(TE); Pulse Ox 97% on R/A; Weight 61.23 kg [facility] (R); Height 5 ft. 3 in. (160.02 cm) (R); Pain 9/10; 22:00 BP 150 / 87; Pulse 73; Resp 18; Pulse Ox 99% on R/A; wh 23:30 BP 142 / 97; Pulse 60; Resp 18; Pulse Ox 97% ; wh 20:54 Body Mass Index 23.91 (61.23 kg, 160.02 cm) [facility] ED Course: 20:41 Patient arrived in ED. cf2 20:54 Triage completed. [facility] 20:54 Arm band placed on Patient placed in waiting room, Patient notified of wait time. [facility] 21:10 Patient has correct armband on for positive identification. Bed in low position. Call light in reach. Side rails up X 1. Pulse ox on. NIBP on. 21:38 Shaji Apple PA is PHCP. [facility] 21:38 Pancho Pendleton MD is Attending Physician. [facility] 21:59 Chris Davis is Primary Nurse. 22:02 Shreyas Cordoba, RN is Primary Nurse. tr5 22:15 Lumbar Spine (3 Views) XRAY In Process Unspecified. EDMS Administered Medications: 22:25 Drug: Zofran 4 mg Route: PO; 23:54 Follow up: Response: No adverse reaction; Nausea is decreased 22:29 Drug: morphine 4 mg {Note: RASS 0.} Route: IM; Site: right deltoid; 23:54 Follow up: Response: No adverse reaction; Nausea is decreased 23:54 Follow up: Response: RASS: Alert and Calm (0) 23:20 Drug: Valium 5 mg Route: PO; 23:54 Follow up: Response: No adverse reaction; Marked relief of symptoms Outcome: 23:22 Discharge ordered by . [facility] 23:56 Patient left the ED. Signatures: Dispatcher [employer] EDMS Maria Del Rosario Leblanc, RN RN aj Shaji Appel PA PA Chris Wing Shreyas Cordoba RN RN 5 Lisa Olvera 2
--- NOTE | 2019-04-17 23:23 | EDPHYS ---
Physician Documentation [facility] Name: Yesenia Salgado Age: 58 yrs Sex: Female : 1960 Arrival Date: 04/17/2019 Time: 20:41 Bed 26 Private MD: ED Physician Pancho Pendleton HPI: 04/17 21:51 This 58 yrs old Female presents to ER via Ambulatory with complaints of Back jmm Pain. 21:51 The patient presents with pain that is acute. Onset: The symptoms/episode jmm began/occurred acutely, today. The pain radiates to the lateral aspect of right thigh. Associated signs and symptoms: Pertinent negatives: abdominal pain, dysuria, fever, incontinence. This is a 58 year old female with a history of chronic pain that presents to the ED with complaints of lower back pain which occurred after bending down earlier today. Patient states the pain radiates to the right thigh. Denies weakness or bowel or bladder issues. . Historical: - Allergies: 20:54 No Known Allergies; aj1 - Home Meds: 20:54 None [Active]; aj1 - PMHx: 20:54 Depression; Hyperlipidemia; Chronic pain; aj1 - Immunization history:: Flu vaccine is not up to date. - Social history:: Smoking status: Patient uses tobacco products, smokes one pack cigarettes per day. - Ebola Screening: : Patient denies travel to an Ebola-affected area in the 21 days before illness onset. ROS: 21:51 Constitutional: Negative for fever, chills, and weight loss, Cardiovascular: Negative jmm for chest pain, palpitations, and edema, Respiratory: Negative for shortness of breath, cough, wheezing, and pleuritic chest pain, Abdomen/GI: Negative for abdominal pain, nausea, vomiting, diarrhea, and constipation. 21:51 Back: Positive for pain with movement. 21:51 MS/extremity: Positive for pain. 21:51 All other systems are negative. Exam: 21:51 Head/Face: atraumatic. Eyes: EOMI, no conjunctival erythema appreciated ENT: Moist jmm Mucus Membranes Neck: Trachea midline, Supple Chest/axilla: Normal chest wall appearance and motion. Cardiovascular: Regular rate and rhythm. No edema appreciated Respiratory: Normal respirations, no respiratory distress appreciated Abdomen/GI: Non distended, soft 21:51 Skin: General appearance color normal MS/ Extremity: Moves all extremities, no obvious deformities appreciated, no edema noted to the lower extremities Neuro: Awake and alert, normal gait Psych: Behavior is normal, Mood is normal, Patient is cooperative and pleasant 21:51 Constitutional: The patient appears in no acute distress, alert, awake. 21:51 Back: ROM is painful, vertebral tenderness, is appreciated at L3 and L4. 21:51 Musculoskeletal/extremity: ROM: intact in all extremities. Vital Signs: 20:54 BP 149 / 93; Pulse 77; Resp 18; Temp 98.3(TE); Pulse Ox 97% on R/A; Weight 61.23 kg aj1 (R); Height 5 ft. 3 in. (160.02 cm) (R); Pain 9/10; 22:00 BP 150 / 87; Pulse 73; Resp 18; Pulse Ox 99% on R/A; wh 23:30 BP 142 / 97; Pulse 60; Resp 18; Pulse Ox 97% ; wh 20:54 Body Mass Index 23.91 (61.23 kg, 160.02 cm) [facility] MDM: 21:47 Patient medically screened. [facility] 23:19 Data reviewed: vital signs, nurses notes. Counseling: I had a detailed discussion with mayank the patient and/or guardian regarding: the historical points, exam findings, and any diagnostic results supporting the discharge/admit diagnosis, radiology results, the need for outpatient follow up, to return to the emergency department if symptoms worsen or persist or if there are any questions or concerns that arise at home. ED course: Pain decreased in the ED. Extensor hallucis longus intact. Patient advised to follow up with pcp and otherwise given strict return precautions. Patient understood and agrees with the plan of care. . 04/17 22:08 Order name: Urine Dipstick--Ancillary (enter results); Complete Time: 22:28 cm6 04/17 22:08 Order name: Urine --Ancillary (enter results); Complete Time: 22:28 cm6 04/17 21:55 Order name: Lumbar Spine (3 Views) XRAY [facility] 04/17 21:55 Order name: Urine Dipstick-Ancillary (obtain specimen); Complete Time: 22:14 [facility] 04/17 21:55 Order name: Urine Test (obtain specimen); Complete Time: 22:14 [facility] Administered Medications: 22:25 Drug: Zofran 4 mg Route: PO; 23:54 Follow up: Response: No adverse reaction; Nausea is decreased 22:29 Drug: morphine 4 mg {Note: RASS 0.} Route: IM; Site: right deltoid; 23:54 Follow up: Response: No adverse reaction; Nausea is decreased 23:54 Follow up: Response: RASS: Alert and Calm (0) 23:20 Drug: Valium 5 mg Route: PO; 23:54 Follow up: Response: No adverse reaction; Marked relief of symptoms Disposition: 04/17/19 23:22 Discharged to Home. Impression: Sprain of other parts of lumbar spine and pelvis. - Condition is Stable. - Discharge Instructions: Back Pain, Adult. - Prescriptions for Ultracet 37.5- 325 mg Oral Tablet - take 1 tablet by ORAL route every 6 hours - for up to 5 days; do not exceed 8 tablets per day.; 20 tablet. Zanaflex 4 mg Oral Tablet - take 1 tablet by ORAL route every 8 hours As needed; 20 tablet. - Medication Reconciliation Form, Thank You Letter, Antibiotic Education, Prescription Opioid Use form. - Follow up: Private Physician; When: 1 - 2 days; Reason: Recheck today's complaints, Continuance of care, Re-evaluation by your physician. Addendum: 04/19/2019 13:50 Co-signature as Attending Physician, Pancho Pendleton MD I agree with the assessment and c hendrickson plan of care. Signatures: Dispatcher [employer] EDMaria Del Rosario Concepcion RN RN aj1 Pancho Pendleton MD MD cha Mickail, Joel, PA PA [facility] Chris Davis Corrections: (The following items were deleted from the chart) 04/17 23:56 23:22 04/17/2019 23:22 Discharged to Home. Impression: Sprain of other parts of lumbar wh spine and pelvis. Condition is Stable. Forms are Medication Reconciliation Form, Thank You Letter, Antibiotic Education, Prescription Opioid Use. Follow up: Private Physician; When: 1 - 2 days; Reason: Recheck today's complaints, Continuance of care, Re-evaluation by your physician. mayank
--- NOTE | 2019-04-18 07:45 | RAD REPORT ---
EXAM DESCRIPTION: RAD - Lumbar Spine 3 Views - 04/17/2019 10:19 pm CLINICAL HISTORY: Back pain FINDINGS: Cement has been placed into an old L5 vertebral body fracture which is mild. The bones are osteoporotic No acute fracture or dislocation is seen.
[2019-04-18 09:45] VITALS: TEMP 98.3
[2019-04-18 09:52] VITALS: BP 142/97; O2SAT 97
== END 2019-04-17 23:56 | disposition home or self-care (01) ==
LOC: ER 20:27
DX: S33.5XXA Sprain of ligaments of lumbar spine, initial encounter (principal); S33.9XXA Sprain of unspecified parts of lumbar spine and pelvis, initial encounter; X50.1XXA Overexertion from prolonged static or awkward postures, initial encounter; Y93.E2 Activity, laundry; Y92.018 Other place in single-family (private) house as the place of occurrence of the external cause; F17.210 Nicotine dependence, cigarettes, uncomplicated
CPT/HCPCS: 72100; 81003; 81025; 96372; 99283

== ENCOUNTER 2019-10-17 09:23 | Emergency (ER) | payer OTHER ==
[2019-10-17] MEDS ORDERED: CYCLOBENZAPRINE 10 MG TAB ONE (10:42)
[2019-10-17] MEDS ORDERED: KETOROLAC 30 MG/ML INJ ONE (10:42)
--- NOTE | 2019-10-17 11:37 | RAD REPORT ---
EXAM DESCRIPTION: RAD - Shoulder Left 2 View - 10/17/2019 11:14 am CLINICAL HISTORY: with Y view;Pain Pain and swelling. COMPARISON: No comparisons FINDINGS: Mild AC joint and glenohumeral joint arthritic changes are present. No fracture or disloca tion. No aggressive marrow lesion.
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
[2019-10-17 12:02] VITALS: BP 152/89; TEMP 97.8; O2SAT 95
== END 2019-10-17 11:56 | disposition home or self-care (01) ==
LOC: ER 09:23
DX: M25.512 Pain in left shoulder (principal); F17.210 Nicotine dependence, cigarettes, uncomplicated
CPT/HCPCS: 96372; 99283

== ENCOUNTER 2020-04-15 16:43 | Emergency (ER) | payer OTHER ==
--- NOTE | 2020-04-15 18:13 | RAD REPORT ---
EXAM DESCRIPTION: CT - Head Brain Wo Cont - 04/15/2020 5:59 pm CLINICAL HISTORY: Headache;Visual disturbances, hypertension COMPARISON: No comparisons TECHNIQUE: Axial 5 mm thick images of the head were obtained without IV contrast. All CT scans are performed using dose optimization technique as appropriate and may include automated exposure control or mA/KV adjustment according to patient size. FINDINGS: No intracranial hemorrhage, mass, edema or shift of mid-line structures. No acute infarcti on changes seen. No abnormal extra-axial fluid collections. Ventricles are normal. Arterial calcifica tions are present. Mastoid air cells and visualized portions of the paranasal sinuses are clear. No acute bony findings. IMPRESSION: Negative non-contrast CT head examination for acute finding.
[2020-04-15 20:29] LABS: Absolute Lymphocytes (CBC) 2.1 K/uL (0.7-4.9); Basophils % 0.8 % (0-1.3); Hematocrit 43.7 % (36.0-45.0); Lymphocytes % 27.8 % (15.3-44.8); MPV 8.9 fL (7.6-11.3); RBC Red Blood Cell Count 4.94 M/uL (3.86-4.86)
[2020-04-15] MEDS ORDERED: dexAMETHasone 10 MG/ML VIAL ONE (20:38)
[2020-04-15] MEDS ORDERED: NA CHLORIDE 0.9% 500 ML ONE (20:39)
[2020-04-15] MEDS ORDERED: MEPERIDINE HCL 25 MG/ML SYR ONE (20:39)
--- NOTE | 2020-04-15 20:46 | RAD REPORT ---
EXAM DESCRIPTION: CT - Head angio - 04/15/2020 8:31 pm CLINICAL HISTORY: Dizziness;Headache, hypertension TECHNIQUE: During dynamic enhancement using nonionic IV contrast, axial 1 millimeter thick images of the head were obtained. Sagittal and axial reconstruction images were generated using MIP technique and reviewed. All CT scans are performed using dose optimization technique as appropriate and may include automated exposure control or mA/KV adjustment according to patient size. COMPARISON: CT head same date FINDINGS: No aneurysm or vascular malformation identified. Major venous sinuses are patent. No stenosis, named branch occlusion, vasculitis or other significant vascular finding identifiable. A nterior communicating artery is present. The left posterior cerebral artery P1 segment is absent as a normal variant. Patient has a large left posterior communicating artery. Scattered atherosclerotic c alcifications are present. IMPRESSION: No aneurysm or vascular malformation. No acute or significant vascular finding.
--- NOTE | 2020-04-15 20:49 | RAD REPORT ---
EXAM DESCRIPTION: CT - Neck Angio - 04/15/2020 8:31 pm CLINICAL HISTORY: HEADACHE TECHNIQUE: During dynamic enhancement using nonionic IV contrast, axial 2 mm thick images of the nec k were obtained. Sagittal and axial reconstruction images were generated using MIP technique and revi ewed. All CT scans are performed using dose optimization technique as appropriate and may include automated exposure control or mA/KV adjustment according to patient size. COMPARISON: CT head same date, CT angio head same date FINDINGS: No aneurysm or vascular malformation identified. No carotid or vertebral dissection. No aortic arch or great vessel origin abnormality seen. Vertebral artery origins unremarkable as well . Left vertebral artery origin is the aortic arch which is a normal anatomic variant. No stenosis, va sculitis or other significant carotid artery finding. Minimal atherosclerotic calcifications are pres ent. Mild tortuosity of the left internal carotid artery. No focal abnormality of either vertebral ar whitley. Right vertebral artery is the dominant vessel. Basilar artery is normal. IMPRESSION: Negative CT angio neck examination for acute or significant finding.
[2020-04-15 20:51] LABS: BUN Blood Urea Nitrogen 10 mg/dL (7-18); Bicarbonate 28 mmol/L (21-32); Creatine Phosphokinase 96 U/L (26-192); Glucose Level 85 mg/dL (74-106); Magnesium 2.4 mg/dL (1.8-2.4); Potassium 3.5 mmol/L (3.5-5.1); Sodium Level 139 mmol/L (136-145); Troponin (Emerg Dept Use Only) < 0.02 ng/mL (0.0-0.045)
[2020-04-15 20:54] LABS: Protime INR 1.02
[2020-04-15] MEDS ORDERED: ASPIRIN 81 MG CHEWABLE TABLET ONE (21:29)
--- NOTE | 2020-04-15 22:03 | ER ---
Nurse's Notes [facility] Name: Yesenia Salgado Age: 59 yrs Sex: Female : 1960 Arrival Date: 04/15/2020 Time: 16:46 Bed 18 Private MD: Diagnosis: Headache;Dizziness and giddiness;Blurred vision;Hypertension Presentation: 04/15 17:08 Chief complaint: Patient states: "I just started feeling very dizzy and nauseated and aa5 somebody took my blood pressure and it was 139/102". Pt also reports [place] to right side of head and reports blurry vision to right eye only. Coronavirus screen: Client denies travel out of the [place] in the last 14 days. At this time, the client does not indicate any symptoms associated with coronavirus-19. Ebola Screen: Patient negative for fever greater than or equal to 101.5 degrees Fahrenheit, and additional compatible Ebola Virus Disease symptoms. Initial Sepsis Screen: Does the patient meet any 2 criteria? No. Patient's initial sepsis screen is negative. Does the patient have a suspected source of infection? No. Patient's initial sepsis screen is negative. Risk Assessment: Do you want to hurt yourself or someone else? Patient reports no desire to harm self or others. Onset of symptoms was April 15, 2020. 17:08 Method Of Arrival: Ambulatory aa5 17:08 Acuity: EBAN 2 aa5 Historical: - Allergies: 17:10 No Known Allergies; aa5 - PMHx: 17:10 Chronic pain; COPD; Depression; Hyperlipidemia; aa5 - Immunization history:: Adult Immunizations unknown. - Social history:: Smoking status: Patient reports the use of cigarette tobacco products, smokes one pack cigarettes per day. - Family history:: not pertinent. - Hospitalizations: : No recent hospitalization is reported. Screenin:46 Abuse screen: Denies threats or abuse. Nutritional screening: No deficits noted. ll1 Tuberculosis screening: No symptoms or risk factors identified. Fall Risk IV access (20 points). Total Balderas Fall Scale indicates No Risk (0-24 pts). Assessment: 18:06 Reassessment: Patient is alert, oriented x 3, equal unlabored respirations, skin aa5 warm/dry/pink. Pt back from CT scan, via wheelchair, pt placed in ER lobby. . 20:30 General: Appears uncomfortable, Behavior is calm, cooperative, appropriate for age. ll1 Pain: Complains of pain in [place] Quality of pain is described as aching, Is continuous. Neuro: Level of Consciousness is awake, alert, obeys commands, Oriented to person, place, time, situation, Appropriate for age Surfacing Technician are equal bilaterally Moves all extremities. Full function Gait is steady, Speech is normal, Facial symmetry appears normal, Reports blurred vision dizziness, headache. Cardiovascular: No deficits noted. Respiratory: No deficits noted. GI: Abdomen is flat, Bowel sounds present X 4 quads. Abd is soft and non tender X 4 quads. Reports nausea. : No deficits noted. 21:30 Reassessment: Patient and/or family updated on plan of care and expected duration. Pain ll1 level reassessed. Patient is alert, oriented x 3, equal unlabored respirations, skin warm/dry/pink. Vital Signs: 17:08 BP 142 / 95; Pulse 80; Resp 18 S; Temp 98.3(TE); Pulse Ox 98% on R/A; Weight 61.23 kg aa5 (R); Height 5 ft. 3 in. (160.02 cm) (R); Pain 6/10; 21:50 Pain 4/10; ll1 17:08 Body Mass Index 23.91 (61.23 kg, 160.02 cm) aa5 ED Course: 16:46 Patient arrived in ED. ds1 17:07 Arm band placed on. aa5 17:09 Triage completed. aa5 17:59 CT Head Brain wo Cont In Process Unspecified. EDMS 19:53 Jacky Cadet, RN is Primary Nurse. ll1 19:54 Rodney Mercado MD is Attending Physician. rn 20:31 CT Head Angio In Process Unspecified. EDMS 20:31 CT Neck Angio In Process Unspecified. EDMS 21:45 Patient has correct armband on for positive identification. Bed in low position. Call ll1 light in reach. Side rails up X 1. Pulse ox on. NIBP on. 22:01 Abhay Lopez MD is Referral Physician. rn 22:26 No provider procedures requiring assistance completed. IV discontinued, intact, ea bleeding controlled, No redness/swelling at site. Pressure dressing applied. Administered Medications: 21:10 Drug: NS 0.9% 500 ml Route: IV; Rate: bolus; Site: left antecubital; 1 21:50 Follow up: Response: No adverse reaction; RASS: Alert and Calm (0); IV Status: ll1 Completed infusion; IV Intake: 500ml 21:10 Drug: Demerol 25 mg {Note: RASS 0.} Route: IVP; Site: left antecubital; 1 21:50 Follow up: Pain 4/10 Adult; Response: No adverse reaction; Pain is decreased; RASS: 1 Alert and Calm (0) 21:11 Drug: Decadron - Dexamethasone 10 mg Route: IVP; Site: left antecubital; 1 21:50 Follow up: Response: No adverse reaction; RASS: Alert and Calm (0) 1 21:23 Drug: Aspirin Chewable Tablet 324 mg Route: PO; ll1 21:50 Follow up: Response: No adverse reaction; RASS: Alert and Calm (0) ll1 Point of Care Testing: Blood Glucose: 17:15 Blood Glucose: 94 mg/dL; aa5 Ranges: Intake: 21:50 IV: 500ml; Total: 500ml. 1 Outcome: 22:02 Discharge ordered by . rn 22:26 Discharged to home ambulatory. ea 22:26 Condition: stable 22:26 Discharge instructions given to patient, Instructed on discharge instructions, follow up and referral plans. the need for admit, Demonstrated understanding of instructions, follow-up care. 22:27 Patient left the ED. ea Signatures: Dispatcher [employer] EDNY Autumn Garcia dsRodney Freeman MD MD rn Calderon, Audri RN RN [id number] Stephanie Negrete RN RN ea Lewis, Lynsay RN RN ll1 Corrections: (The following items were deleted from the chart) 17:13 17:08 Acuity: BEAN 3 aa5 aa5
--- NOTE | 2020-04-15 22:03 | EDPHYS ---
Physician Documentation [facility] Name: Yesenia Salgado Age: 59 yrs Sex: Female : 1960 Arrival Date: 04/15/2020 Time: 16:46 Bed 18 Private MD: ED Physician Rodney Mercado HPI: 04/15 20:23 This 59 yrs old Female presents to ER via Ambulatory with complaints of rn Dizziness, High Blood Pressure. 20:23 The patient presents with dizziness, feeling faint, generalized weakness, rn lightheadedness, feeling off balance. Onset: The symptoms/episode began/occurred today, at 13:00. Context: occurred on a street or driveway, occurred while the patient was driving. Modifying factors: The symptoms are alleviated by nothing, the symptoms are aggravated by nothing. Associated signs and symptoms: Pertinent positives: blurred vision, nausea, Pertinent negatives: chest pain, seizure, shortness of breath, syncope. Severity of symptoms: At their worst the symptoms were moderate in the emergency department the symptoms have improved. The patient has not experienced similar symptoms in the past. The patient has not recently seen a physician. Reports headache, moderate, aching, entire head, assoc with blurred vision central right eye that is improving, no focal weakness/numbness. No trauma. Began while driving, went to work, felt like was veering to right and dizzy. No vomiting. + nausea. NO chest or abd pain.. Historical: - Allergies: 17:10 No Known Allergies; aa5 - PMHx: 17:10 Chronic pain; COPD; Depression; Hyperlipidemia; aa5 - Immunization history:: Adult Immunizations unknown. - Social history:: Smoking status: Patient reports the use of cigarette tobacco products, smokes one pack cigarettes per day. - Family history:: not pertinent. - Hospitalizations: : No recent hospitalization is reported. ROS: 20:23 Constitutional: Negative for fever, chills, and weight loss, Eyes: Negative for injury, rn pain, redness, and discharge, Neck: Negative for injury, pain, and swelling, Cardiovascular: Negative for chest pain, palpitations, and edema, Respiratory: Negative for shortness of breath, cough, wheezing, and pleuritic chest pain, Abdomen/GI: Negative for abdominal pain,diarrhea, and constipation, Back: Negative for injury and pain, MS/Extremity: Negative for injury and deformity, Skin: Negative for injury, rash, and discoloration, Neuro: Negative for weakness, numbness, tingling, and seizure. Exam: 20:23 Constitutional: This is a well developed, well nourished patient who is awake, alert, rn and in no acute distress. Head/Face: Normocephalic, atraumatic. Eyes: Pupils equal round and reactive to light, extra-ocular motions intact. Lids and lashes normal. Conjunctiva and sclera are non-icteric and not injected. Cornea within normal limits. Periorbital areas with no swelling, redness, or edema. Central visual field blurred vision to confrontation. ENT: dry MM Neck: No Meningismus. Cardiovascular: Regular rate and rhythm. No pulse deficits. Respiratory: No increased work of breathing, no retractions or nasal flaring. Abdomen/GI: soft, non-tender Skin: Warm, dry MS/ Extremity: Pulses equal, no cyanosis. Neurovascular intact. Full, normal range of motion. Equal circumference. Neuro: Awake and alert, GCS 15, oriented to person, place, time, and situation. Cranial nerves II-XII grossly intact. Motor strength 5/5 in all extremities. Sensory grossly intact. Cerebellar exam normal. 20:46 ECG was reviewed by the Attending Physician. rn Vital Signs: 17:08 BP 142 / 95; Pulse 80; Resp 18 S; Temp 98.3(TE); Pulse Ox 98% on R/A; Weight 61.23 kg aa5 (R); Height 5 ft. 3 in. (160.02 cm) (R); Pain 6/10; 21:50 Pain 4/10; ll1 17:08 Body Mass Index 23.91 (61.23 kg, 160.02 cm) aa5 MDM: 19:54 Patient medically screened. rn 21:59 Differential diagnosis: CVA, generalized weakness, hyperventilation, hypovolemia, rn idiopathic dizziness, TIA, vertigo, migraine, HTN headache. Data reviewed: vital signs, nurses notes, lab test result(s), EKG, radiologic studies, CT scan, and as a result, I will discharge patient. Counseling: I had a detailed discussion with the patient and/or guardian regarding: the historical points, exam findings, and any diagnostic results supporting the discharge/admit diagnosis, the presence of at least one elevated blood pressure reading (>120/80) during this emergency department visit, lab results, radiology results, the need for outpatient follow up, to return to the emergency department if symptoms worsen or persist or if there are any questions or concerns that arise at home. Response to treatment: the patient's symptoms have markedly improved after treatment, the patient's symptoms have resolved after treatment, the patient's condition has returned to base line, and as a result, I will discharge patient. Special discussion: I discussed with the patient/guardian in detail that at this point there is no indication for admission to the hospital. It is understood, however, that if the symptoms persist or worsen the patient needs to return immediately for re-evaluation. Further emergent ED testing is not indicated at this point in time. I discussed with the patient/guardian in detail the need to arrange with the PCP or specialist further outpatient testing, MRI, Based on the history and exam findings, there is no indication for further emergent testing or inpatient evaluation. I discussed with the patient/guardian the need to see the neurologist for further evaluation of the symptoms. ED course: Pt back to baseline, headache resolved, dizziness resolved, repeat neuro exam normal. Ambulatory without dizziness or ataxia. No acute findings on ct head/angio brain or neck. Will take baby aspirin daily and f/u with neuro for further eval. Carotids clean. Vision improved as well.. 04/15 17:27 Order name: Glucose, Ancillary Testing; Complete Time: 19:28 EDMS 04/15 20:04 Order name: Basic Metabolic Panel; Complete Time: 20:52 04/15 20:04 Order name: CBC with Diff; Complete Time: 20:51 04/15 20:04 Order name: CPK; Complete Time: 20:52 04/15 20:04 Order name: Magnesium; Complete Time: 20:52 04/15 20:04 Order name: Protime (+inr); Complete Time: 21: 04/15 17:13 Order name: CT Head Brain wo Cont; Complete Time: 19:28 aa5 04/15 20:04 Order name: Ptt, Activated; Complete Time: 21:09 04/15 20:04 Order name: Troponin (emerg Dept Use Only); Complete Time: 20:52 04/15 20:04 Order name: Urine Microscopic Only 04/15 20:04 Order name: CT Head Angio; Complete Time: 20:51 rn 04/15 20:04 Order name: CT Neck Angio; Complete Time: 20:51 rn 04/15 22:19 Order name: Urine Dipstick--Ancillary (enter results) az 04/15 20:04 Order name: EKG; Complete Time: 20:06 rn 04/15 20:04 Order name: Cardiac monitoring 04/15 20:04 Order name: EKG - Nurse/Tech; Complete Time: 21:43 rn 04/15 20:04 Order name: IV Saline Lock; Complete Time: 20:37 rn 04/15 20:04 Order name: Labs collected and sent; Complete Time: 20:37 rn 04/15 20:04 Order name: O2 Per Protocol; Complete Time: 20:37 rn 04/15 20:04 Order name: O2 Sat Monitoring; Complete Time: 20:37 rn 04/15 20:04 Order name: Urine Dipstick-Ancillary (obtain specimen); Complete Time: 20:36 rn EC:46 Rate is 73 beats/min. Rhythm is regular. QRS Comfort is Normal. IN interval is normal. QRS rn interval is normal. QT interval is normal. No Q waves. T waves are Normal. No ST changes noted. Clinical impression: NSR w/ Non-specific ST/T Changes. Interpreted by me. Reviewed by me. Administered Medications: 21:10 Drug: NS 0.9% 500 ml Route: IV; Rate: bolus; Site: left antecubital; [facility] 21:50 Follow up: Response: No adverse reaction; RASS: Alert and Calm (0); IV Status: ll1 Completed infusion; IV Intake: 500ml 21:10 Drug: Demerol 25 mg {Note: RASS 0.} Route: IVP; Site: left antecubital; [facility] 21:50 Follow up: Pain 4/10 Adult; Response: No adverse reaction; Pain is decreased; RASS: ll1 Alert and Calm (0) 21:11 Drug: Decadron - Dexamethasone 10 mg Route: IVP; Site: left antecubital; 1 21:50 Follow up: Response: No adverse reaction; RASS: Alert and Calm (0) [facility] 21:23 Drug: Aspirin Chewable Tablet 324 mg Route: PO; 1 21:50 Follow up: Response: No adverse reaction; RASS: Alert and Calm (0) ll1 Point of Care Testing: Blood Glucose: 17:15 Blood Glucose: 94 mg/dL; aa5 Ranges: Critical Glucose Levels:Adult <50 mg/dl or >400 mg/dl <40 mg/dl or >180 mg/dl Disposition: 04/15/20 22:02 Discharged to Home. Impression: Headache, Dizziness and giddiness, Blurred vision, Hypertension. - Condition is Stable. - Discharge Instructions: Dizziness, General Headache Without Cause, Hypertension. - Work release form, Medication Reconciliation Form, Thank You Letter, Antibiotic Education, Prescription Opioid Use form. - Follow up: Abhay Lopez MD; When: As needed; Reason: Recheck today's complaints, Re-evaluation by your physician. - Problem is new. - Symptoms have improved. Signatures: Dispatcher [employer] EDMS Kate Grace, SLAB INSTALLER-C SLAB INSTALLER-Ckb Rodney Mercado MD MD rn Calderon, Audri RN RICARDO aa5 Rachid Cosme SLAB INSTALLER-C SLAB INSTALLER-[facility]1 Stephanie Negrete RN RN ea Lewis, Lynsay RN RICARDO ll1 Corrections: (The following items were deleted from the chart) 20:26 20:23 Constitutional: Negative for fever, chills, and weight loss, Eyes: Negative for rn injury, pain, redness, and discharge, Neck: Negative for injury, pain, and swelling, Cardiovascular: Negative for chest pain, palpitations, and edema, Respiratory: Negative for shortness of breath, cough, wheezing, and pleuritic chest pain, Abdomen/GI: Negative for abdominal pain,diarrhea, and constipation, MS/Extremity: Negative for injury and deformity, Skin: Negative for injury, rash, and discoloration, Neuro: Negative for weakness, numbness, tingling, and seizure, rn 22:27 22:02 04/15/2020 22:02 Discharged to Home. Impression: Headache; Dizziness and ea giddiness; Blurred vision; Hypertension. Condition is Stable. Forms are Medication Reconciliation Form, Thank You Letter, Antibiotic Education, Prescription Opioid Use. Follow up: Abhay Lopez; When: As needed; Reason: Recheck today's complaints, Re-evaluation by your physician. Problem is new. Symptoms have improved. rn
[2020-04-15 22:32] LABS: Urine Blood TRACE (NEG); Urine Glucose NEGATIVE (NEG); Urine Protein NEGATIVE (NEG)
[2020-04-15 22:51] VITALS: BP 142/95; TEMP 98.3; O2SAT 98
[2020-04-15 23:37] LABS: Urine Bacteria <20 /HPF (<20); Urine Culture Reflex Order NOT NEEDED; Urine RBC <5 /HPF (NONE SEEN)
== END 2020-04-15 22:27 | disposition home or self-care (01) ==
LOC: ER 16:43
DX: R51.9 Headache, unspecified (principal); I10 Essential (primary) hypertension; H53.8 Other visual disturbances; F17.210 Nicotine dependence, cigarettes, uncomplicated
CPT/HCPCS: 85025; 80048; 36415; 83735; 82550; 85610; 82565; 82947; 85730; 84484; 70450; 70496; 70498; Q9967; J1100; J2175; J7040; 81003; 81015